=== PATIENT | female | born 1995 | race African-American/Black ===

== ENCOUNTER 2017-06-25 07:56 | Emergency (ER) | payer SELFPAY ==
[~2017-06-25] VITALS: Ht 152.4 cm; Wt 75.0 kg
[2017-06-25 08:00] VITALS: BP 132/72; PULSE 125; RESP 12; TEMP 98.4; O2SAT 100
[2017-06-25 08:08] VITALS: BP 128/61; PULSE 97; RESP 18; O2SAT 100
--- NOTE | 2017-06-25 09:39 | PD ---
HPI Chief Complaint: GI Complaint Time Seen by Provider: 09:31 Travel History International Travel<30 days: No Contact w/Intl Traveler<30days: No Traveled to known affect area: No History of Present Illness HPI 21-year-old female complains of headache, nausea vomiting. Patient states that she started having intermittent nausea vomiting for the past 3 days. Patient started complaining a headache since yesterday. Patient states that she has history recurrent headache in the past. Patient has not seen a physician for that. Patient is complaining of photophobia and nausea vomiting with the headache. Patient denies any visual change. Patient denies any neck pain. Patient denies any chest pain shortness of breath. Patient denies abdominal pain. Patient denies any dysuria or frequency. Patient denies any fever chills. Patient denies any back pain. Patient denies any focal weakness or numbness of the extremity. PFSH Past Medical History Medical History: Denies Significant Hx Immunizations Current: Yes Tetanus Vaccination: Unknown Influenza Vaccination: No ?: Unknown LMP: 04/30/17 Past Surgical History Surgical History: No Previous Surgery Social History Alcohol Use: Yes (BEER ONCE A MONTH) Tobacco Use: No Substance Use: Yes (MARIJUANA THREE TIMES A DAY) Allergies-Medications (Allergen,Severity, Reaction): Coded Allergies: No Known Allergies (Unverified , 06/25/17) Review of Systems General / Constitutional: No: Fever Eyes: Positive: Photophobia, No: Visual changes HENT: Positive: Headaches Cardiovascular: No: Chest Pain or Discomfort Respiratory: No: Shortness of Breath Gastrointestinal: Positive: Nausea, Vomiting, No: Abdominal Pain Genitourinary: No: Dysuria Musculoskeletal: No: Pain Skin: No Rash Neurologic: No: Weakness Psychiatric: No: Depression Endocrine: No: Polydipsia Hematologic/Lymphatic: No: Easy Bruising Physical Exam Narrative GENERAL: Well-nourished, well-developed patient. SKIN: Focused skin assessment warm/dry. HEAD: Normocephalic. EYES: No scleral icterus. No injection or drainage. Pupils 3 mm equal reactive. NECK: Supple, trachea midline. No JVD or lymphadenopathy. CARDIOVASCULAR: Regular rate and rhythm without murmurs, gallops, or rubs. RESPIRATORY: Breath sounds equal bilaterally. No accessory muscle use. GASTROINTESTINAL: Abdomen soft, non-tender, nondistended. MUSCULOSKELETAL: No cyanosis, or edema. BACK: Nontender without obvious deformity. No CVA tenderness. Neurologic exam normal. Data Data Last Documented VS Vital Signs Date Time Temp Pulse Resp B/P (MAP) Pulse Ox O2 Delivery O2 Flow Rate FiO2 06/25/17 08:11 18 06/25/17 08:08 97 128/61 (83) 100 06/25/17 08:00 98.4 Orders Orders Complete Blood Count With Diff (06/25/17 09:30) Comprehensive Metabolic Panel (06/25/17 09:30) Urinalysis - C+S If Indicated (06/25/17 09:30) Ed Urine Pregnancytest Poc (06/25/17 09:30) Iv Access Insert/Monitor (06/25/17 09:30) Lipase (06/25/17 09:30) Urine Culture (06/25/17 09:35) Ct Brain W/O Iv Contrast(Rout) (06/25/17 ) Ketorolac Inj (Toradol Inj) (06/25/17 12:45) Ondansetron Inj (Zofran Inj) (06/25/17 12:45) Labs Laboratory Tests Test 06/25/17 09:35 White Blood Count 10.3 TH/MM3 Red Blood Count 4.92 MIL/MM3 Hemoglobin 13.0 GM/DL Hematocrit 39.2 % Mean Corpuscular Volume 79.7 FL Mean Corpuscular Hemoglobin 26.4 PG Mean Corpuscular Hemoglobin Concent 33.2 % Red Cell Distribution Width 14.2 % Platelet Count 229 TH/MM3 Mean Platelet Volume 8.1 FL Neutrophils (%) (Auto) 81.6 % Lymphocytes (%) (Auto) 13.9 % Monocytes (%) (Auto) 4.1 % Eosinophils (%) (Auto) 0.1 % Basophils (%) (Auto) 0.3 % Neutrophils # (Auto) 8.4 TH/MM3 Lymphocytes # (Auto) 1.4 TH/MM3 Monocytes # (Auto) 0.4 TH/MM3 Eosinophils # (Auto) 0.0 TH/MM3 Basophils # (Auto) 0.0 TH/MM3 CBC Comment DIFF FINAL Differential Comment Urine Color YELLOW Urine Turbidity HAZY Urine pH 6.0 Urine Specific [place] 1.019 Urine Protein TRACE mg/dL Urine Glucose (UA) NEG mg/dL Urine Ketones NEG mg/dL Urine Occult Blood NEG Urine Nitrite NEG Urine Bilirubin NEG Urine Urobilinogen LESS THAN 2.0 MG/DL Urine Leukocyte Esterase SMALL Urine RBC 2 /hpf Urine WBC 9 /hpf Urine Squamous Epithelial Cells 35 /hpf Urine Amorphous Sediment FEW Urine Bacteria OCC /hpf Urine Mucus FEW /lpf Microscopic Urinalysis Comment CULTURE INDICATED Blood Urea Nitrogen 7 MG/DL Creatinine 0.72 MG/DL Random Glucose 84 MG/DL Total Protein 7.1 GM/DL Albumin 3.5 GM/DL Calcium Level 8.9 MG/DL Alkaline Phosphatase 59 U/L Aspartate Amino Transf (AST/SGOT) 9 U/L Alanine Aminotransferase (ALT/SGPT) 16 U/L Total Bilirubin 0.9 MG/DL Sodium Level 138 MEQ/L Potassium Level 3.9 MEQ/L Chloride Level 108 MEQ/L Carbon Dioxide Level 25.7 MEQ/L Anion Gap 4 MEQ/L Estimat Glomerular Filtration Rate 124 ML/MIN Lipase 64 U/L [facility] Medical Decision Making Medical Screen Exam Complete: Yes Emergency Medical Condition: Yes Interpretation(s) Last Impressions Head CT 06/25/17 0000 Signed Impressions: Service Date/Time: May 10:03 - CONCLUSION: 1. No acute intracranial findings. 2. Minimal right-sided ethmoid sinus disease. Vincent Bolanos MD 12:35 PM. CBC within normal limit. CMP within normal limit. UA positive with WBC and bacteria. Differential Diagnosis Differential diagnosis including migraine headache, tension headache, cluster headache, viral syndrome. Narrative Course 21-year-old female with headache, nausea vomiting photophobia. Diagnosis Primary Impression: Cephalgia Qualified Codes: R51 - Headache Additional Impressions: Sinusitis Qualified Codes: J32.2 - Chronic ethmoidal sinusitis UTI (urinary tract infection) Qualified Codes: N30.00 - Acute cystitis without hematuria Patient Instructions: General Instructions Additional Instructions: Take medications as directed. Follow-up with personal physician. Return if worse. Med/Other Pt SpecificInfo: Prescription(s) given Scripts Ondansetron Odt (Zofran Odt) 4 Mg Tab 4 MG SL Q6HR Y for Nausea/Vomiting, #10 TAB 0 Refills Prov: Alfa Munoz MD 06/25/17 Rbhlfxsbmt-Qhoptmstknwtt-Jpkixwco (Fioricet) 50-300-40 Mg Cap 1-2 CAP PO Q6H Y for HEADACHE, #30 CAP 0 Refills Prov: Alfa Munoz MD 06/25/17 Ciprofloxacin (Cipro) 500 Mg Tab 500 MG PO BID for Infection, #20 TAB 0 Refills Prov: Alfa Munoz MD 06/25/17 Disposition: 01 DISCHARGE HOME Condition: Stable Alfa Munoz MD Jun 25, 2017 09:39
[2017-06-25 09:49] LABS: AUTOMATED NEUTROPHIL # 8.4 TH/MM3 (1.8-7.7); BASOPHIL % 0.3 % (0.0-2.0); EOSINOPHIL % 0.1 % (0.0-4.0); HEMATOCRIT 39.2 % (35.0-46.0); HEMO FLAGS DIFF FINAL; LYMPH % 13.9 % (9.0-44.0); LYMPHOCYTE # 1.4 TH/MM3 (1.0-4.8); MEAN CELL VOLUME 79.7 FL (80.0-100.0); MEAN CORPUSCULAR HEMOGLOBIN 26.4 PG (27.0-34.0); MEAN CORPUSCULAR HGB CONC 33.2 % (32.0-36.0); MONO % 4.1 % (0.0-8.0); NEUT % 81.6 % (16.0-70.0); PLATELET COUNT 229 TH/MM3 (150-450); RED BLOOD COUNT 4.92 MIL/MM3 (4.00-5.30); RED CELL DISTRIBUTION WIDTH 14.2 % (11.6-17.2); WHITE BLOOD COUNT 10.3 TH/MM3 (4.0-11.0)
[2017-06-25 09:54] LABS: BACTERIA, URINE OCC /hpf; BLOOD, URINE NEG (NEG); COMMENT (UR) CULTURE INDICATED; CULTURE IF INDICATED CULTURE INDICATED; GLUCOSE,URINE NEG (NEG); KETONE, URINE NEG (NEG); MUCUS URINE FEW /lpf (OCC); NITRITE,URINE NEG (NEG); SQUAMOUS EPITHELIAL CELL URINE 35 /hpf (0-5); URINE COLOR YELLOW (YELLW/STRAW)
[2017-06-25 10:01] LABS: ANION GAP 4 MEQ/L (5-15); AST (GOT) 9 U/L (15-37); BICARBONATE 25.7 MEQ/L (21.0-32.0); BLOOD UREA NITROGEN 7 MG/DL (7-18); CHLORIDE 108 MEQ/L (98-107); GLOMERULAR FILTRATION RATE 124 ML/MIN (>89); POTASSIUM 3.9 MEQ/L (3.5-5.1); SODIUM (NA) 138 MEQ/L (136-145)
[2017-06-25 10:06] LABS: ALKALINE PHOSPHATASE 59 U/L (45-117); ALT (GPT) 16 U/L (10-53); TOTAL BILIRUBIN ADULT 0.9 MG/DL (0.2-1.0)
--- NOTE | 2017-06-25 10:32 | RADRPT ---
EXAM DATE/TIME: 06/25/2017 10:03 [facility] COMPARISON: No previous studies available for comparison. INDICATIONS : Headache, nausea and dizziness. RADIATION DOSE: 32.46 CTDIvol (mGy) MEDICAL HISTORY : None SURGICAL HISTORY : None. ENCOUNTER: Initial ACUITY: 2 days PAIN SCALE: 4/10 LOCATION: Bilateral frontal TECHNIQUE: Multiple contiguous axial images were obtained of the head. Using automated exposure control and adj ustment of the mA and/or kV according to patient size, radiation dose was kept as low as reasonably a chievable to obtain optimal diagnostic quality images. DICOM format image data is available electro nically for review and comparison. FINDINGS: CEREBRUM: The ventricles are normal for age. No evidence of midline shift, mass lesion, hemorrhage or acute in farction. No extra-axial fluid collections are seen. POSTERIOR FOSSA: The cerebellum and brainstem are intact. The 4th ventricle is midline. The cerebellopontine angle i s unremarkable. EXTRACRANIAL: Minimal partial opacification right-sided ethmoid air cells. SKULL: The calvaria is intact. No evidence of skull fracture. CONCLUSION: 1. No acute intracranial findings. 2. Minimal right-sided ethmoid sinus disease. Vincent Bolanos MD on June 25, 2017 at 10:29 Board Certified Radiologist. This report was verified electronically.
[2017-06-25] MEDS ORDERED: BUTA1CAP PO (12:41)
[2017-06-25] MEDS ORDERED: ZOFR4TAB3 SL (12:41)
[2017-06-25] MEDS ORDERED: CIPR-9 PO (12:41)
[2017-06-25] MEDS ORDERED: ONDANSETRON HCL 4 MG/2 ML VIAL IV PUSH ONE (12:45)
[2017-06-25] MEDS ORDERED: KETOROLAC TROMETHAMINE 30 MG/ML (IVP) VIAL IV PUSH ONE (12:45)
[2017-06-25 12:46] VITALS: BP 107/55; PULSE 68; RESP 16; O2SAT 100
== END 2017-06-25 13:19 | disposition home or self-care (01) ==
LOC: NEPE 07:56
DX: R51 Headache (principal); J32.2 Chronic ethmoidal sinusitis; N30.00 Acute cystitis without hematuria; R11.2 Nausea with vomiting, unspecified; H53.149 Visual discomfort, unspecified
CPT/HCPCS: 70450; 80053; 81001; 83690; 84703; 85025; 87086; 96374; 96375; 99285; J1885; J2405